=== PATIENT | female | born 1940 | race Caucasian/White ===

== ENCOUNTER 2023-12-14 20:22 | Observation (INO) | payer MEDICARE, SELFPAY ==
[2023-12-14] VITALS (9 sets, daily range): BP systolic 127–174; BP diastolic 52–80; BMI 18.5; BMI 17.2
[2023-12-14 12:02] LABS: % Basophils 0.7 % (0-2); % Eosinophils 0.5 % (0-6); % Immature Granulocytes 0.4 % (0-0.5); % Lymphocytes 26.2 % (20.5-51.1); % Monocytes 8.8 % (1.7-9.3); % Neutrophils 63.4 % (42.2-75.2); Absolute Lymphocytes 1.5 10^3/uL (1.2-3.4); Absolute Monocytes 0.5 10^3/uL (0.1-0.6); Absolute Neutrophils 3.6 10^3/uL (1.4-6.5); Hematocrit 41.4 % (37.0-47.0); Hemoglobin 14.1 g/dL (12.0-16.0); Mean Corp Hgb Conc. 34.1 g/dL (33.0-37.0); Mean Corpuscular Hgb 33.6 pg (27.0-31.0); Mean Corpuscular Volume 98.6 fL (81.0-99.0); Mean Platelet Volume 8.5 fL (7.4-10.4); Nucleated Red Blood Cells % 0 %; Platelet Count 392 10^3/uL (130-400); Red Cell Dist. Width 12.7 % (11.5-14.5); White Blood Cell Count 5.7 10^3/uL (4.8-10.8)
[2023-12-14 12:12] LABS: ALT (SGPT) 29 U/L (0-35); AST (SGOT) 31 U/L (14-36); Alkaline Phosphatase 55 U/L (38-126); Blood Urea Nitrogen 17 mg/dl (7-17); Calcium 9.6 mg/dl (8.4-10.2); Carbon Dioxide 29 mmol/L (22-30); Chloride 101 mmol/L (98-107); Estimated Creatinine Clearance 34 ml/min; Glucose 86 mg/dl (70-99); Lipase 112 U/L (23-300); Potassium 4.1 mmol/L (3.5-5.1); Sodium 137 mmol/L (135-145); Total Bilirubin 0.5 mg/dl (0.2-1.3); Total Protein 6.3 g/dl (6.3-8.2); eGFR > 60.00
--- NOTE | 2023-12-14 12:32 | ED.GENMED ---
History of Present Illness
General
Chief Complaint: Abdominal Pain
Time Seen by Provider: 12/14/23 12:04
History of Present Illness
History of Present Illness:
83-year-old female with history of hypertension and hypothyroidism presents to the emergency department for evaluation of right lower quadrant abdominal discomfort, nausea, and diarrhea. Patient was admitted to [facility] 10 days ago at
which time she was diagnosed with acute appendicitis by CT scan, she was treated with 3 days of IV Zosyn and discharged on a further course of Augmentin which she completed yesterday. States her symptoms had resolved up until this morning when she
developed some more pressure in the lower abdomen. States symptoms are somewhat comparable to the beginning of her symptomology at the time of appendicitis. No fevers or chills. No prior abdominal surgeries
Review of Systems
Review of Systems
Allergies reviewed?: Yes
All Other Systems: ROS reviewed and negative except as documented in HPI and ROS
Phy Exam
Physical Exam
Physical Exam:
GEN: Well appearing, NAD, WDWN
HEENT: Oral mucosa moist, no scleral icterus
Cardiac: Regular rate and rhythm, no murmurs
Lung: No respiratory distress, no tachypnea
Abdomen: Soft, grossly nontender
MSK: No gross deformity or injuries
Skin: Good color, no pallor or jaundice, no rashes
Neuro: AO x3, moves all extremities freely
Psych: Calm, cooperative
Course
Orders/Labs/Results
Orders:
Orders
12/14/23 11:26
IV Insert/Care/Rem.- Treatment PRN
12/14/23 11:46
Complete Blood Count/With Diff Urgent
Comprehensive Metabolic Panel Urgent
Lipase Urgent
12/14/23 12:48
CT Abd/pel W Iv And Oral Contr Urgent
Comment:
Reason For Exam: RLQ pain
Iohexol [Omnipaque] See Protocol PO NOW STA
12/14/23 13:11
Urinalysis Reflex To Culture Urgent
Date Specimen was Collected: 12/14/23
Time Specimen was Collected: 13:08
Urine Microscopic Reflex Cult Urgent
12/14/23 15:12
C DIFF [C difficile Antigen & Toxins] Urgent
[place] Source: Feces/Stool
Specimen Description:
Date Specimen was Collected: 12/14/23
Time Specimen was Collected: 15:02
12/14/23 17:22
Piperacillin/Tazo 3.375 Gram [Zosyn] 3.375 gram in 50 ml IV NOW
12/14/23 17:23
Lactated Ringers [Lr] 1,000 ml IV 125 mls/hr
Abnormal Lab Results
12/14/23 12/14/23
11:46 13:11
MCH 33.6 H pg
(27.0-31.0)
Ur Occult Blood Reflex 1+ A
(Negative)
12/14/23 11:46
12/14/23 11:46
Vital Signs
Initial and Last Documented VS:
Initial Vital Signs
Temp Pulse Resp BP Pulse Ox
98.1 F 83 18 159/70 97
12/14/23 11:08 12/14/23 11:08 12/14/23 11:08 12/14/23 11:08 12/14/23 11:08
Last Documented Vital Signs
Temp Pulse Resp BP Pulse Ox
97.6 F 83 16 147/70 98
12/14/23 18:05 12/14/23 18:05 12/14/23 18:05 12/14/23 18:05 12/14/23 18:05
MDM/Problems Addressed
MDM/Problems Addressed:
Patient with recurrent acute appendicitis seen on CT scan. I was able to have the radiologist compare the images from her previous scan and today's images as the patient was able to provide a disc, evidence for worsening disease. Will admit to the
general surgery service for operative intervention
*Critical Care Note
Total Time (30-74mins, 75-104mins- exclusive of procedures): Not Applicable
ED Attending Note
-
Portions of this chart may have been created with voice recognition software.� Occasional wrong word or��sound alike� substitutions may have occurred due to the inherent limitations of voice recognition software.
Discharge Plan
Departure
Patient Disposition: Admit
Date of Disposition: 12/14/23
Time of Disposition: 17:22
Admit to: Med/Surg
Presentation/result/management discussed w/ accepting MD/DO: Gen Surg
Discharge Problem:
Acute appendicitis
Referrals:
UNKNOWN - PT DOES,NOT KNOW [Family Provider] -
Interventions
Interventions:
*Risk Screen - Suicide Last Done: 12/14/23 11:56
*General Assessment Last Done: 12/14/23 11:08
*Neglect/Abuse Screening Last Done: 12/14/23 11:56
ED- Fall Risk Assessment Last Done: 12/14/23 11:56
*ED COVID-19 Vaccine History Last Done: 12/14/23 11:08
AT-Edkzfa-Ycrjdmnynu Assessment Last Done: 12/14/23 11:56
Discharge Date and Time
Print Language: ROMANIAN
--- NOTE | 2023-12-14 12:40 | EDRN ---
Troy Velasquez PA in w/pt at this time.
[2023-12-14] MEDS: OMNIPAQUE 50 ML PO (13:01)
--- NOTE | 2023-12-14 13:14 | EDRN ---
Urine spec obtained and sent. pt has not had a stool since arrival. Pain remains 09/11. Daughter in room w/pt. pt drinking oral CT contrast for CT scan at this time.
[2023-12-14 13:21] LABS: Urine Albumin Negative (Neg - Trace); Urine Bilirubin Negative (Negative); Urine Character Clear (Clear); Urine Color Yellow; Urine Glucose Negative (Negative); Urine Ketone Negative (Negative); Urine Leukocyte Negative (Negative); Urine Nitrite Negative (Negative); Urine Occult Blood 1+ (Negative); Urine Specific Gravity 1.015 (<1.030); Urine Urobilinogen Negative (Neg - 1+); Urine pH 6.5 (5.0-9.0)
[2023-12-14 14:05] LABS: Urine Red Blood Cell 0-2 /HPF (0-2); Urine Squamous Cell 0-2 /LPF (Few); Urine White Cell 0-2 /HPF (0-5)
--- NOTE | 2023-12-14 14:22 | EDRN ---
Pt has almost finished drinking her contrast. Pt remains w/ pain unchanged at 4/10 in RLQ, nausea that is mild, no vomiting, and no diarrhea.
[2023-12-14] MEDS: ZOSYN 50 IV ×2 (18:00→23:48)
[2023-12-14] MEDS: LR 1000 IV (18:01)
--- NOTE | 2023-12-14 20:01 | HPS.HSE ---
Family Physician
-
Family Physician: NOT KNOW UNKNOWN - PT DOES
Chief Complaint
-
Abdominal pain
History of Present Illness
a 83 years old female present in ER with a complain of abdominal pain. Symptoms started 10 days ago and patient was admitted to a hospital in [place]. Patient was diagnosed with acute appendicitis by CT scan, received Zosyn 3 day and was discharged
on Augmentin that was completed yesterday. Symptoms was resolved in the last couple day but restarted this am, described her symptoms as more pressure in the RLQ of abdomen with similar acute appendicitis symptom that started couple days ago.
Patient complained of diarrhea x couple days, she mentioned that she was tested for C-diff and it was negative. Denied fever, chills, nausea, vomiting, SOB, chest pain or any other symptoms. Patient has medical history of hypertension and
hypothyroidism.
Medical History
Past Medical History
Past Medical History: Reports HTN and Hypothyroidism
Past Surgical History: Reports Tonsilectomy
Social History
Tobacco: Non-smoker
Alcohol: None
Drug: None
Personal:
Living: With Family
Employment: Retired
Family History
Family History: Not pertinent
Allergies / Home Medications
Allergies reflects when Allergies were last updated in [facility].
Home Medications with original date entered in [facility]
Allergy/Medication List:
Patient Allergies
Allergy/AdvReac Type Severity Reaction Status Date / Time
Sulfa (Sulfonamide Allergy Unknown Verified 12/14/23 11:13
Antibiotics)
Home Medications Table - record
�Medication �Instructions �Recorded �Confirmed
buspirone 5 mg tablet 2.5 mg PO TID 12/14/23 12/14/23
levothyroxine 50 mcg tablet 50 mcg PO DAILY 12/14/23 12/14/23
(Synthroid)
spironolactone 25 mg tablet 25 mg PO QID 12/14/23 12/14/23
Review of Systems
-
A 12 point ROS was completed and negative except as noted: Yes
Constitutional: Reports No Symptoms
EENT: Reports No Symptoms
Respiratory: Reports No Symptoms
Cardiac: Reports No Symptoms
Abdomen/GI: Reports Abdominal Pain (RLQ) and Diarrhea
: Reports No Symptoms
Musculoskeletal: Reports No Symptoms
Skin: Reports No Symptoms
Hematologic/Lymphatic: Reports No Symptoms
Psych: Reports No Symptoms
Physical Exam
Vital Signs
Vital Signs
Temp Pulse Resp BP Pulse Ox
97.6 F 83 16 147/70 98
12/14/23 18:05 12/14/23 18:05 12/14/23 18:05 12/14/23 18:05 12/14/23 18:05
Physical Exam
General: No Apparent Distress
Respiratory: Clear
Cardiac: Regular Rhythm
GI: Soft, Non Tender and Normal Bowel Sounds
Musculoskeletal: No Edema
Neuro: Awake and AO x 3
Laboratory Results
-
12/14/23 11:46
12/14/23 11:46
Laboratory Results
Total Bilirubin 0.5 mg/dl (0.2-1.3) 12/14/23 11:46
AST 31 U/L (14-36) 12/14/23 11:46
ALT 29 U/L (0-35) 12/14/23 11:46
Alkaline Phosphatase 55 U/L (38-126) 12/14/23 11:46
Lipase 112 U/L (23-300) 12/14/23 11:46
Data Reviewed
-
CT Scan: Discussed with Patient
Impression/Plan
-
Abd/PLVS CT shows
There is acute appendicitis.
The unopacified appendix measures 15 mm in diameter with mild periappendiceal inflammatory stranding
There is no evidence of perforation or abscess.
IMPRESSION:
acute appendicitis
PLAN:
Admit /observation/ med-surg (Dr. Atkinson general surgery services)
NPO
IVF
abx Zosyn
antiemetics as needed
analgesics as needed
Diarrhea-----> per patient she is neg for C-diff, patient was on abx for the last couple days will add probiotics
HTN
Patient on spironolactone
Hypothyroidism
Patient on Synthroid
DVT prophylaxis
Lovenox sq
Code status
Full code
[2023-12-14] MEDS: VISBIOME 2 CAP PO (20:07)
[2023-12-15] MEDS: LR 1000 IV ×2 (04:00→15:05)
[2023-12-15] MEDS: HYDROCORTISONE 1% CREAM 1 APPLIC TOPICAL ×3 (04:00→19:18)
[2023-12-15] MEDS: ZOSYN 50 IV (06:15)
[2023-12-15 07:25] VITALS: BP 135/70
[2023-12-15] MEDS: VISBIOME 2 CAP PO (07:51)
[2023-12-15] MEDS: ZOFRAN 4 MG IV ×2 (09:23→22:22)
--- NOTE | 2023-12-15 09:33 | PTCARENOTE ---
pt given prn zofran for nausea and queasy sensation this morning. PT npo for appendectomy this afternoon. pt receiving IVF and is a x1 assist to the bsc
--- NOTE | 2023-12-15 10:37 | W.PN.GS2 ---
Addendum entered and electronically signed by Antonio Atkinson MD 12/15/23 14:39:
I saw and examined the patient.
The Diamond Sorter's note was reviewed and I agree with the note.
Comment: Pt presents after completing PO abx course yesterday and developing lower abd 'pressure.' She had acute apendicitis prior to this and was seen at a [place] hospital. They did non-op mgmt with IV abx and DC;'ed her home with augmentin. She has a
hx of anxiety and became very fearful of recurrence when the abx ran out and she had those symptoms. Her labs and vitals are normal. Her exam is normal, she has no RLQ ttp. Her imaging shows phlegmonous changes in the RLQ likely the residual
appendicitis that is resolving. I recommended 24 hrs obs off abx. If she does not develop fever or leukocytosis or pain, would DC home. If she develops those signs/symptoms, would rec another course of PO abx. Rec Psych eval as well for her acute on
chronic anxiety issues.
Original Note:
Today's Communication / Plan
-
Clear liquids
Hold ABX
Assessment / Plan
-
83 yo female recently treated for appendicitis as inpatient with abx in [facility], discharged on oral augmentin which she completed with noted RLQ pressure recurrence causing her to present. CT this admission with surrounding inflammatory changes
from prior episode but no clear active appendicitis, large fibroid noted. Afebrile. No leukocytosis. Exam benign. Reports nausea and diarrhea. She does attribute some of her GI symptoms to anxiety.
Will need outpatient colonoscopy given reported history of large polyp removed segmentally in 2021 prior to any plans for interval appendectomy.
AFVSS
--No plans for emergent surgery at this time.
--Follow off abx x24 hours while inpatient
--Follow exam/fever trend/wbc's while off abx
--Continue IVF
--Clear liquids, ADAT
--Consult placed to psychiatry given ongoing anxiety contributing to symptoms
--SCD's for VTE ppx
--OOB/ambulate
Subjective Data
-
Date of Service: December 15, 2023
Patient seen and examined at bedside with Dr. Atkinson. Denies vomiting but has had intermittent nausea. +diarrhea/loose stools frequently. RLQ pressure on presentation, not really present currently. Reports significant anxiety currently her
has been quite ill and they are relocating from [place] to [place] for assistance from family.
Objective Data
-
Intake and Output
12/14/23 12/15/23 12/16/23
06:59 06:59 06:59
Intake Total 1490 / 1490
Balance 1490 / 1490
Intake:
Oral fluids 240 / 240
IV fluids (Total) 1150 / 1150
IV piggybacks 100 / 100
Other:
Number of approximated MODERATE 3 3
amounts of urine
Vital Signs
Temp Pulse Resp BP Pulse Ox
98.2 F 80 18 135/70 98
12/15/23 07:25 12/15/23 07:25 12/15/23 07:25 12/15/23 07:25 12/15/23 07:25
Lab Results
12/14/23 11:46
12/14/23 11:46
Calcium 9.6 mg/dl (8.4-10.2) 12/14/23 11:46
Total Bilirubin 0.5 mg/dl (0.2-1.3) 12/14/23 11:46
AST 31 U/L (14-36) 12/14/23 11:46
ALT 29 U/L (0-35) 12/14/23 11:46
Alkaline Phosphatase 55 U/L (38-126) 12/14/23 11:46
Total Protein 6.3 g/dl (6.3-8.2) 12/14/23 11:46
Albumin 4.0 g/dl (3.5-5.0) 12/14/23 11:46
Physical Exam
-
NAD
ABD soft, nt, nd
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
[2023-12-15 15:14] VITALS: BMI 17.2
[2023-12-15 15:40] VITALS: BP 120/62
[2023-12-15] MEDS: ZOLOFT 25 MG PO (15:57)
[2023-12-15] MEDS: LOVENOX 30 MG SC (17:50)
--- NOTE | 2023-12-15 21:30 | PTCARENOTE ---
House COSTUMED CHARACTER, Rebekah Dawson, to floor to see patient after patient and daughters requesting if patient can have medication to help with recurrent diarrhea. Patients daughters requesting CT scan be explained to them at this time as well. Immodium ordered
and administered per order. Plan of care for overnight explained at length with patient and daughters. Made daughters aware that most of their questions need to be addressed with attending MD tomorrow morning. Assessment on going.
[2023-12-15] MEDS: IMODIUM 2 MG PO (22:02)
[2023-12-15] MEDS: TYLENOL 650 MG PO (22:07)
--- NOTE | 2023-12-15 22:38 | W.PN.UPDATE ---
Update Note
Progress Note Update
RN notified CLAIM ANALYST, patient's family wants to talk to the provider regarding current status. Dr. Atkinson's plan explained, Family continuos to seek answers and needing more work up related to GI to be done. Patient reports she been having diarrhea for
ten days without any improvement. Patient refuses traveling, or any recent sick contacts, no new food exposure. Patient has been on antibiotics, but C-diff been negative. no fever, no blood or mucous in stool, denies any abdomen pain. Reports
nausea at times. Patient is teary and anxious, Diarrhea likely due to anxiety (IBS?). Psych Consult in place. Will give one dose of Imodium at present. Stable Vs, labs wnl
[2023-12-15 23:35] VITALS: BP 151/68
[2023-12-16] MEDS: LR 1000 IV ×2 (00:56→10:54)
[2023-12-16 05:26] LABS: Hematocrit 35.9 % (37.0-47.0); Hemoglobin 12.7 g/dL (12.0-16.0); Mean Corp Hgb Conc. 35.4 g/dL (33.0-37.0); Mean Corpuscular Hgb 33.1 pg (27.0-31.0); Mean Corpuscular Volume 93.5 fL (81.0-99.0); Mean Platelet Volume 8.5 fL (7.4-10.4); Platelet Count 376 10^3/uL (130-400); Red Blood Cell Count 3.84 10^6/uL (4.20-5.40); Red Cell Dist. Width 12.4 % (11.5-14.5); White Blood Cell Count 6.5 10^3/uL (4.8-10.8)
[2023-12-16 05:56] LABS: Blood Urea Nitrogen 9 mg/dl (7-17); Calcium 9.4 mg/dl (8.4-10.2); Carbon Dioxide 24 mmol/L (22-30); Chloride 103 mmol/L (98-107); Estimated Creatinine Clearance 48 ml/min; Glucose 80 mg/dl (70-99); Potassium 4.3 mmol/L (3.5-5.1); Sodium 135 mmol/L (135-145); eGFR > 60.00
[2023-12-16 06:24] LABS: TSH Reflex To Free T4 2.06 uIU/ml (0.47-4.68)
[2023-12-16 07:50] VITALS: BP 162/78
[2023-12-16] MEDS: VISBIOME 2 CAP PO (08:26)
[2023-12-16] MEDS: ZOLOFT 25 MG PO (08:26)
[2023-12-16] MEDS: ZOFRAN 4 MG IV (08:32)
[2023-12-16] MEDS: HYDROCORTISONE 1% CREAM 1 APPLIC TOPICAL (08:46)
--- NOTE | 2023-12-16 10:35 | CM ---
Initial assessment completed with pt and daughter at bedside.
Pt is an 83yr old admitted on OBS for Acute Appendicitis. Daughter signed PLASCENCIA. Per daughter, they were told she was admitted inpatient for surgery, and then it was later cancelled. Daughter will follow up with patient billing about this.
Pt is independent at baseline and living in [place]. Just 2 days ago, pt signed on house in the [place] area. While the house is set up, pt will dc to daughters home.
Daughters home is a multilevel home with 2 steps to enter. The pt will be sleeping on the 2nd floor.
Pt does not have any DME, and does not have a PCP currently. Daughter planned to set her up within the [place] [facility] early in the week.
Pharm; [facility]
PLAN; dc to daughters home, no needs.
--- NOTE | 2023-12-16 11:01 | W.PN.GS2 ---
Addendum entered and electronically signed by Antonio Atkinson MD 12/17/23 07:33:
I saw and examined the patient.
The Bulk Plant Agent's note was reviewed and I agree with the note.
Comment: Late entry from 12/16/23. Pt doing well this am, no pain, no fevers, no new complaints. Abd exam without ttp. No leukocytosis. Plan for DC home. Advised to return if develops new pain, fever, n/v, or other concerning symptoms
Original Note:
Today's Communication / Plan
-
Dispo planning
Assessment / Plan
-
83 yo female recently treated for appendicitis as inpatient with abx in [facility], discharged on oral augmentin which she completed with noted RLQ pressure recurrence causing her to present. CT this admission with surrounding inflammatory changes
from prior episode but no clear acute appendicitis, large fibroid noted. Afebrile. No leukocytosis. Exam benign. Reports nausea and diarrhea. She does attribute some of her GI symptoms to anxiety.
Will need outpatient colonoscopy given reported history of large polyp removed segmentally in 2021 prior to any plans for interval appendectomy. Patient needs local PCP as well.
AFVSS
No pain
No leukocytosis
C-diff negative
Diarrhea slowing, small amounts with meals
--No plans for surgery at this time.
--Continue off antibiotics
--BRAT diet today, low residue at home. Encourage hydration
--Avoid Lomotil/Imodium given recent infection
--Zofran PO prn at home until GI symptoms improve
--Appreciate psychiatry, will continue zoloft on discharge
Subjective Data
-
Date of Service: December 16, 2023
Objective Data
-
Intake and Output
12/15/23 12/16/23 12/17/23
06:59 06:59 06:59
Intake Total 1490 / 1490 2640 / 2640
Balance 1490 / 1490 2640 / 2640
Intake:
Oral fluids 240 / 240 240 / 240
IV fluids (Total) 1150 / 1150 2400 / 2400
IV piggybacks 100 / 100
Other:
Number of approximated SMALL 1
amounts of urine
Number of approximated MODERATE 3 2
amounts of urine
Number of unmeasured liquid
stools
Rectum 3
Vital Signs
Temp Pulse Resp BP Pulse Ox
97.6 F 77 18 162/78 96
12/16/23 07:50 12/16/23 07:50 12/16/23 07:50 12/16/23 07:50 12/16/23 07:50
Lab Results
12/16/23 04:52
12/16/23 04:52
Calcium 9.4 mg/dl (8.4-10.2) 12/16/23 04:52
Total Bilirubin 0.5 mg/dl (0.2-1.3) 12/14/23 11:46
AST 31 U/L (14-36) 12/14/23 11:46
ALT 29 U/L (0-35) 12/14/23 11:46
Alkaline Phosphatase 55 U/L (38-126) 12/14/23 11:46
Total Protein 6.3 g/dl (6.3-8.2) 12/14/23 11:46
Albumin 4.0 g/dl (3.5-5.0) 12/14/23 11:46
[2023-12-16 11:25] VITALS: BP 136/67
--- NOTE | 2023-12-16 11:49 | CM ---
Pt for dc today with daughter.
No needs identified.
Daughter provided transport to home.
--- NOTE | 2023-12-16 14:46 | W.DCSUMMARY ---
Discharge Summary
Discharge Data
Date of Admission: 12/14/23
Date of Discharge: 12/16/23
-
Pending Results: No
Hospital Course
Ms Estrada is a 83 yo female who was recently admitted at a hospital in [facility] for appendicitis and treated medically with antibiotics and discharged to home on Augmentin with recent completion of that antibiotic course. She presented with right
abdominal pressure and continued diarrhea and intermittent nausea through the ED. Her abdominal exam was benign without tenderness or distention. She had no leukocytosis, bandemia or fevers. CT imaging was consistent with inflammatory changes
expected with recent appendiceal infection and without abscess as well as a large uterine fibroid. She noted that antibiotics have always given her diarrhea and attributed some of her diarrhea to recent Augmentin usage and was eager to remain off
antibiotic agents.
She was followed in observation off antibiotics without recurrence of abdominal pressure. She remained afebrile with normal WBC count during her course of stay. Some diarrhea persisted, which although frequent, was low in volume. She was able to
tolerate PO intake prior to discharge. She was discharged on BRAT diet with plan to transition to LRD thereafter. She reported significant anxiety regarding her current stressors at home (ill , moving states, etc) and was evaluated by
psychiatry with initiation of Zoloft with a script provided at discharge. She notes she was recommended to have a colonoscopy 2 years ago given a large polyp removed segmentally but has yet to undergo this. She has recently relocating to [place] to be
near family and has yet to find a primary care provider. She was encouraged to find one within the next few weeks for continued outpatient medical follow up as well as follow up with local [facility], GI and psychiatry. Care was discussed with her daughter
Kirti as well a cousin who is a radiator tester and will be involved with her care as an outpatient.
Discharge Plan
-
Patient Disposition: Home (Routine Discharge)
Discharge Diagnosis/Procedures: Diarrhea
Condition: Good
Diet: Low Fiber and BRAT
Activity: No restrictions
Bathing Restrictions: OK to Shower
Activity Restrictions/Additional Instructions:
Call your doctor if you have worsening abdominal pain or fevers. Eat a low fiber diet and stay hydrated.
Please follow up with a primary care doctor to renew your prescription for Zoloft as prescribed by our inpatient psychiatrist. A number is listed below for an outpatient provider but feel free to choose your own. Follow up for psychotherapy as
previously discussed.
Follow up for a opening machine cleaner in the next 2-3 months for routine colonoscopy
Referrals:
Julia Vargas DO [Active] -
Antonio Atkinson MD [Active] - None (call as needed)
Prescriptions:
New
sertraline 25 mg Tablet
25 mg PO DAILY Qty: 30 0RF
ondansetron 4 mg tablet,disintegrating
4 mg PO Q8HPRN PRN (Reason: nausea/vomiting) Qty: 20 0RF
Continued
levothyroxine [Synthroid] 50 mcg Tablet
50 mcg PO DAILY
Held
spironolactone 25 mg Tablet
25 mg PO QID
Hold Instructions: Resume on 01/06/24. stop until diarrhea resolves. Follow up with your prescriber to discuss.
Discontinued
buspirone 5 mg Tablet
2.5 mg PO TID
Discharge Orders:
Discharge Patient (As Directed); Ordered 12/16/23
Ordered By: Holly Thornton
Discharge Date and Time
Discharge Date/Time: 12/16/23 11:40
Print Language: NIGERIEN
== END 2023-12-16 11:40 | disposition home or self-care (01) ==
LOC: 2 NORTH 20:22
PROVIDERS: Physician Assistant; Registered Nurse; Student in an Organized Health Care Education/Training Program; ADMITTING PHYSICIAN Surgery; CONSULT PHYSICIAN Psychiatry & Neurology Psychiatry; EMERGENCY PHYSICIAN Emergency Medicine
DX: K35.80 Unspecified acute appendicitis (principal); R19.7 Diarrhea, unspecified; I10 Essential (primary) hypertension; E03.9 Hypothyroidism, unspecified; R11.0 Nausea; R10.31 Right lower quadrant pain; F41.9 Anxiety disorder, unspecified; Z88.2 Allergy status to sulfonamides; Z79.890 Hormone replacement therapy; Z62.810 Personal history of physical and sexual abuse in childhood
CPT/HCPCS: 74177; 80048; 80053; 81003; 81015; 83690; 84443; 85025; 85027; 87324; 87449; 96361; 96365; 99285; G0378; Q9967